=== PATIENT | male | born 1990 | race African-American/Black ===

== ENCOUNTER → 2019-09-21 | Emergency (ER) | payer BC, OTHER ==
[~2019-09-21] VITALS: Ht 172.7 cm; Wt 72.6 kg
[2019-09-22 00:08] VITALS: BP 138/70
== END | disposition left against medical advice (07) ==
LOC: ER 23:42
DX: H57.89 Other specified disorders of eye and adnexa (principal); Z53.21 Procedure and treatment not carried out due to patient leaving prior to being seen by health care provider

== ENCOUNTER 2022-10-11 16:56 | Emergency (ER) | payer BC, OTHER | END 2022-10-11 17:17 | disposition left against medical advice (07) | LOC: ER 16:56 | DX: J02.9 Acute pharyngitis, unspecified (principal); Z53.21 Procedure and treatment not carried out due to patient leaving prior to being seen by health care provider ==